=== PATIENT | female | born 1975 | race Caucasian/White ===

== ENCOUNTER 2020-02-03 15:07 | Outpatient (REF) | payer OTHER, SELFPAY | END 2020-02-03 15:08 | disposition home or self-care (01) | LOC: HO.HMGCLDS 15:07 | PROVIDERS: Visit Provider Nurse Practitioner Family | DX: R07.0 Pain in throat (principal) | CPT/HCPCS: 84443 ==

== ENCOUNTER 2020-08-21 15:43 | Emergency (ER) | payer OTHER, SELFPAY ==
--- NOTE | ~2020-08-21 | US_ITS ---
EXAMINATION: US ABDOMEN LIMITED CLINICAL INFORMATION: Right upper quadrant pain.. COMPARISON: None TECHNIQUE: Real-time imaging of the right upper quadrant abdominal viscera. FINDINGS: PANCREAS: The head and the body the pancreas is homogeneous in echotexture. The tail is obscured by overlying gas. LIVER: The liver is normal in size. The liver contour is normal. Parenchymal echogenicity is is diffusely increased. No focal hepatic lesion. There is no intrahepatic biliary duct dilatation seen. GALLBLADDER: There are multiple echogenic floating gallstones without wall thickening. There is mild tenderness in right upper quadrant ultrasound probe. COMMON BILE DUCT: Normal in caliber measuring 0.3 cm in diameter. RIGHT KIDNEY: There is anechoic cyst in lower pole measuring 1.9 x 1.5 x 1.7 cm. No hydronephrosis. No renal calculi or focal parenchymal lesions. The kidney measures 10.3 cm in maximum dimension. FREE FLUID: None. US/US abdomen limited IMPRESSION: Simple cyst lower pole right kidney. Mild hepatic steatosis without focal lesion. Cholelithiasis with tenderness in right upper quadrant by ultrasound probe.
--- NOTE | 2020-08-21 16:26 | ED_ITS ---
HPI - Abdominal Pain General Chief Complaint: Abdominal Pain <ANUJA Jorgensen - Last Filed: 08/21/20 16:31> Stated Complaint: back pain <ANUJA Jorgensen - Last Filed: 08/21/20 16:31> Time Seen by Provider: 08/21/20 16:25 <ANUJA Jorgensen - Last Filed: 08/21/20 16:31> Source: patient <Loretta Cooper DO - Last Filed: 08/21/20 19:45> Mode of arrival: ambulatory <Loretta Cooper DO - Last Filed: 08/21/20 19:45> Limitations: no limitations <Loretta Cooper DO - Last Filed: 08/21/20 19:45> History of Present Illness HPI narrative: 44 yo female with hx of biliary colic started with RUQ pain similar to attacks after consuming heavy dairy, has surgery appointment September 03, n/v <Loretta Cooper DO - Last Filed: 08/21/20 19:45> MD elicited complaint: abdominal pain <Loretta Cooper DO - Last Filed: 08/21/20 19:45> Pertinent past history: other (gallstones) <Loretta Cooper DO - Last Filed: 08/21/20 19:45> Onset (ago): day(s) (2) <Loretta Cooper DO - Last Filed: 08/21/20 19:45> Pain Consistency: constant <Loretta Cooper DO - Last Filed: 08/21/20 19:45> Location: RUQ <Loretta Cooper DO - Last Filed: 08/21/20 19:45> Severity: moderate <Loretta Cooper DO - Last Filed: 08/21/20 19:45> Quality: stabbing <Loretta Cooper DO - Last Filed: 08/21/20 19:45> Radiation: back <Loretta Cooper DO - Last Filed: 08/21/20 19:45> Exacerbating factors: eating <Loretta Cooper DO - Last Filed: 08/21/20 19:45> Relieving factors: nothing <Loretta Cooper DO - Last Filed: 08/21/20 19:45> Context: history of similar episodes <Loretta Cooper DO - Last Filed: 08/21/20 19:45> Associated symptoms: nausea and vomiting <Loretta Cooper DO - Last Filed: 08/21/20 19:45> Related Data Home Medications: Previous Rx's Medication Instructions Recorded hydrocodone-acetaminophen 1 tab PO Q6H PRN #12 tab 08/21/20 ondansetron 4 mg PO Q8H PRN #20 tab 08/21/20 <ANUJA Jorgensen - Last Filed: 08/21/20 16:31> Allergies/Adverse Reactions: Allergies Allergy/AdvReac Type Severity Reaction Status Date / Time ibuprofen [IBUPROFEN] Allergy Unknown UNKNOWN Verified 08/21/20 16:26 <ANUJA Jorgensen - Last Filed: 08/21/20 16:31> Review of Systems Review of Systems Constitutional : No Weight loss, No Fever, No Chills ENT/Mouth : No sore throat, No Rhinorrhea Eyes: No Swelling, No Redness Cardiovascular : No Chest Pain, No SOB, NoEdema Respiratory : No Cough, No Sputum, No Wheezing Gastrointestinal : Positive Nausea, Positive Vomiting, no Diarrhea, positive abdominal Pain, No Hematochezia, No Melena Genitourinary : No Dysuria, No Urinary Frequency, No Hematuria, No Urgency Musculoskeletal : No joint pain, No Myalgias, No Joint Swelling Skin : No Skin Lesions, No rash Neuro : No Weakness, No Numbness, No Dizziness, No Headache Psych : No Anxiety/Panic, No Depression Heme/Lymph: No Bruising, No Lymphadenopathy Endocrine : No Polyuria, No Polydipsia All other systems reviewed and are negative. <Loretta Cooper DO - Last Filed: 08/21/20 19:45> Physical Exam Vital Signs: Vital Signs: Last Vital Signs Temp 98.9 F 08/21/20 18:30 Pulse 62 08/21/20 18:30 Resp 18 08/21/20 18:30 BP 109/75 08/21/20 18:30 Pulse Ox 99 08/21/20 18:30 Body Mass Index 31.1 <ANUJA Jorgensen Last Filed: 08/21/20 16:31> Vital Signs: Last Vital Signs Temp 98.9 F 08/21/20 18:30 Pulse 62 08/21/20 18:30 Resp 18 08/21/20 18:30 BP 109/75 08/21/20 18:30 Pulse Ox 99 08/21/20 18:30 Body Mass Index 31.1 <Loretta Cooper DO - Last Filed: 08/21/20 19:45> Appearance: Alert. Oriented X3. No acute distress. Eyes: Pupils equal, round and reactive to light. ENT: Pharynx normal. Neck: Normal inspection. Neck supple. CVS: Normal heart rate and rhythm. Pulses normal. Respiratory: No respiratory distress. Breath sounds normal. Abdomen: Soft and moderate RUQ no rebound or guarding, + grissom's Skin: Skin warm and dry. Normal skin color. Normal skin turgor. Extremities: No lower extremity edema. No calf ttp Neuro: Oriented X 3. No motor deficit. No sensory deficit. <Loretta Cooper DO - Last Filed: 08/21/20 19:45> Course Course Course Narrative: Rapid medical examination: 44 y/o female with history of gallstones presents with 2 days of severe 8/10 RUQ pain that wraps around to her right flank. Last ate yesterday and had worsening pain. + chills + loose stools. No N/V or fevers. Appears uncomfortable in triage. Temp 99.7. Hemodynamically stable. Given PO tylenol. Will get labs, lactic acid, RUQ U/S for further assessment. <ANUJA Jorgensen - Last Filed: 08/21/20 16:31> stable VS, no signs of GB infection on US normal labs, normal LFTs <Loretta Cooper DO - Last Filed: 08/21/20 19:45> MDM - Abdominal Pain MDM Narrative Medical decision making narrative: 44 yo female with known biliary colic 2 days of RUQ pain, labs, US, IV morphine for pain, does have surgery appointment on September 03, has not been eating a low fat diet, dispo per results and improvement. <Loretta Cooper DO - Last Filed: 08/21/20 19:45> Lab Data Result diagrams: : 08/21/20 18:36 08/21/20 18:36 <ANUJA Jorgensen - Last Filed: 08/21/20 16:31> Labs: Lab Results 08/21/20 08/21/20 08/21/20 Range/Units 18:36 18:36 18:36 WBC 9.7 (4.8-10.8) X10*3/uL RBC 4.09 L (4.20-5.50) X10*6/uL Hgb 12.5 (12.0-16.0) g/dl Hct 36.2 L (37-47) % MCV 88.5 (80-98) fL MCH 30.6 (27.0-33.0) pg MCHC 34.5 (31.0-35.0) g/dl RDW 12.4 (11.0-16.0) % Plt Count 359 (160-400) X10*3/uL MPV 9.5 (9.4-12.3) fL Immature Gran % (Auto) 0.3 (0.0-0.4) % Neut % (Auto) 77.5 H (45-73) % Lymph % (Auto) 16.9 L (20-40) % [place] % (Auto) 4.7 (2-11) % Eos % (Auto) 0.2 (0-4) % Baso % (Auto) 0.4 (0-2) % Lymph # (Auto) 1.6 (1.2-4.9) X10*3/uL [place] # (Auto) 0.5 (0.1-1.2) X10*3/uL Eos # (Auto) 0.0 (0.0-0.4) X10*3/uL Baso # (Auto) 0.0 (0.0-0.2) X10*3/uL Abs Immat Gran (auto) 0.03 (0.00-0.03) X10*3/uL Absolute Neuts (auto) 7.5 (2.0-8.3) X10*3/uL Absolute Nucleated RBC 0.000 (0.0-0.012) X10*3/uL Nucleated RBC % (auto) 0.0 (0.0-0.2) /100WBC Hold Blue Top SEE NOTE Sodium 140 (135-145) mmol/L Potassium 3.9 (3.3-5.1) mmol/L Chloride 106 (96-108) mmol/L Carbon Dioxide 22 (22-29) mmol/L Anion Gap 16 (12-20) BUN 11 (9-16) mg/dL Creatinine 0.79 (0.5-1.4) mg/dL Estim Creat Clear Calc 109.5 Estimated GFR > 60 Random Glucose 90 (60-115) mg/dL Lactic Acid (0.5-2.0) mmol/L Calcium 9.1 (8.4-10.2) mg/dL Magnesium 2.1 (1.6-2.6) mg/dL Total Bilirubin 0.6 (0.0-1.0) mg/dL Direct Bilirubin 0.2 (0.0-0.5) mg/dL AST 19 (5-31) U/L ALT 24 (0-31) U/L Alkaline Phosphatase 47 (39-117) U/L Total Protein 7.3 (6.5-8.0) g/dL Albumin 4.4 (3.5-5.0) g/dL Lipase 36 (8-78) U/L 08/21/20 Range/Units 18:36 WBC (4.8-10.8) X10*3/uL RBC (4.20-5.50) X10*6/uL Hgb (12.0-16.0) g/dl Hct (37-47) % MCV (80-98) fL MCH (27.0-33.0) pg MCHC (31.0-35.0) g/dl RDW (11.0-16.0) % Plt Count (160-400) X10*3/uL MPV (9.4-12.3) fL Immature Gran % (Auto) (0.0-0.4) % Neut % (Auto) (45-73) % Lymph % (Auto) (20-40) % [place] % (Auto) (2-11) % Eos % (Auto) (0-4) % Baso % (Auto) (0-2) % Lymph # (Auto) (1.2-4.9) X10*3/uL [place] # (Auto) (0.1-1.2) X10*3/uL Eos # (Auto) (0.0-0.4) X10*3/uL Baso # (Auto) (0.0-0.2) X10*3/uL Abs Immat Gran (auto) (0.00-0.03) X10*3/uL Absolute Neuts (auto) (2.0-8.3) X10*3/uL Absolute Nucleated RBC (0.0-0.012) X10*3/uL Nucleated RBC % (auto) (0.0-0.2) /100WBC Hold Blue Top Sodium (135-145) mmol/L Potassium (3.3-5.1) mmol/L Chloride (96-108) mmol/L Carbon Dioxide (22-29) mmol/L Anion Gap (12-20) BUN (9-16) mg/dL Creatinine (0.5-1.4) mg/dL Estim Creat Clear Calc Estimated GFR Random Glucose (60-115) mg/dL Lactic Acid 1.4 (0.5-2.0) mmol/L Calcium (8.4-10.2) mg/dL Magnesium (1.6-2.6) mg/dL Total Bilirubin (0.0-1.0) mg/dL Direct Bilirubin (0.0-0.5) mg/dL AST (5-31) U/L ALT (0-31) U/L Alkaline Phosphatase (39-117) U/L Total Protein (6.5-8.0) g/dL Albumin (3.5-5.0) g/dL Lipase (8-78) U/L <ANUJA Jorgensen - Last Filed: 08/21/20 16:31> Lab Results 08/21/20 08/21/20 08/21/20 Range/Units 18:36 18:36 18:36 WBC 9.7 (4.8-10.8) X10*3/uL RBC 4.09 L (4.20-5.50) X10*6/uL Hgb 12.5 (12.0-16.0) g/dl Hct 36.2 L (37-47) % MCV 88.5 (80-98) fL MCH 30.6 (27.0-33.0) pg MCHC 34.5 (31.0-35.0) g/dl RDW 12.4 (11.0-16.0) % Plt Count 359 (160-400) X10*3/uL MPV 9.5 (9.4-12.3) fL Immature Gran % (Auto) 0.3 (0.0-0.4) % Neut % (Auto) 77.5 H (45-73) % Lymph % (Auto) 16.9 L (20-40) % [place] % (Auto) 4.7 (2-11) % Eos % (Auto) 0.2 (0-4) % Baso % (Auto) 0.4 (0-2) % Lymph # (Auto) 1.6 (1.2-4.9) X10*3/uL [place] # (Auto) 0.5 (0.1-1.2) X10*3/uL Eos # (Auto) 0.0 (0.0-0.4) X10*3/uL Baso # (Auto) 0.0 (0.0-0.2) X10*3/uL Abs Immat Gran (auto) 0.03 (0.00-0.03) X10*3/uL Absolute Neuts (auto) 7.5 (2.0-8.3) X10*3/uL Absolute Nucleated RBC 0.000 (0.0-0.012) X10*3/uL Nucleated RBC % (auto) 0.0 (0.0-0.2) /100WBC Hold Blue Top SEE NOTE Sodium 140 (135-145) mmol/L Potassium 3.9 (3.3-5.1) mmol/L Chloride 106 (96-108) mmol/L Carbon Dioxide 22 (22-29) mmol/L Anion Gap 16 (12-20) BUN 11 (9-16) mg/dL Creatinine 0.79 (0.5-1.4) mg/dL Estim Creat Clear Calc 109.5 Estimated GFR > 60 Random Glucose 90 (60-115) mg/dL Lactic Acid (0.5-2.0) mmol/L Calcium 9.1 (8.4-10.2) mg/dL Magnesium 2.1 (1.6-2.6) mg/dL Total Bilirubin 0.6 (0.0-1.0) mg/dL Direct Bilirubin 0.2 (0.0-0.5) mg/dL AST 19 (5-31) U/L ALT 24 (0-31) U/L Alkaline Phosphatase 47 (39-117) U/L Total Protein 7.3 (6.5-8.0) g/dL Albumin 4.4 (3.5-5.0) g/dL Lipase 36 (8-78) U/L 08/21/20 Range/Units 18:36 WBC (4.8-10.8) X10*3/uL RBC (4.20-5.50) X10*6/uL Hgb (12.0-16.0) g/dl Hct (37-47) % MCV (80-98) fL MCH (27.0-33.0) pg MCHC (31.0-35.0) g/dl RDW (11.0-16.0) % Plt Count (160-400) X10*3/uL MPV (9.4-12.3) fL Immature Gran % (Auto) (0.0-0.4) % Neut % (Auto) (45-73) % Lymph % (Auto) (20-40) % [place] % (Auto) (2-11) % Eos % (Auto) (0-4) % Baso % (Auto) (0-2) % Lymph # (Auto) (1.2-4.9) X10*3/uL [place] # (Auto) (0.1-1.2) X10*3/uL Eos # (Auto) (0.0-0.4) X10*3/uL Baso # (Auto) (0.0-0.2) X10*3/uL Abs Immat Gran (auto) (0.00-0.03) X10*3/uL Absolute Neuts (auto) (2.0-8.3) X10*3/uL Absolute Nucleated RBC (0.0-0.012) X10*3/uL Nucleated RBC % (auto) (0.0-0.2) /100WBC Hold Blue Top Sodium (135-145) mmol/L Potassium (3.3-5.1) mmol/L Chloride (96-108) mmol/L Carbon Dioxide (22-29) mmol/L Anion Gap (12-20) BUN (9-16) mg/dL Creatinine (0.5-1.4) mg/dL Estim Creat Clear Calc Estimated GFR Random Glucose (60-115) mg/dL Lactic Acid 1.4 (0.5-2.0) mmol/L Calcium (8.4-10.2) mg/dL Magnesium (1.6-2.6) mg/dL Total Bilirubin (0.0-1.0) mg/dL Direct Bilirubin (0.0-0.5) mg/dL AST (5-31) U/L ALT (0-31) U/L Alkaline Phosphatase (39-117) U/L Total Protein (6.5-8.0) g/dL Albumin (3.5-5.0) g/dL Lipase (8-78) U/L <Loretta Cooper DO - Last Filed: 08/21/20 19:45> Discharge Plan Discharge Clinical Impression: Biliary colic <ANUJA Jorgensen - Last Filed: 08/21/20 16:31> Patient Disposition: Home, Self-Care <ANUJA Jorgensen - Last Filed: 08/21/20 16:31> Instructions: Biliary Colic (ED), Low Fat Diet (ED) <ANUJA Jorgensen - Last Filed: 08/21/20 16:31> Additional Instructions: return to ED for any worsening symptoms or concerns LOW fat to NO fat, keep your surgery appointment for September 03 <ANUJA Jorgensen - Last Filed: 08/21/20 16:31> Prescriptions: New hydrocodone-acetaminophen 5-325 mg tablet 1 tab PO Q6H PRN (Reason: pain) Qty: 12 RF: 0 ondansetron 4 mg tablet,disintegrating 4 mg PO Q8H PRN (Reason: nausea and vomiting) Qty: 20 RF: 0 <ANUJA Jorgensen - Last Filed: 08/21/20 16:31> [facility] Past Medical History Attestation statement: The following information was validated with the patient. <Lorteta Cooper DO - Last Filed: 08/21/20 19:45> Medical History: Medical History (Updated 08/21/20 @ 19:43 by Loretta Cooper DO) Biliary colic No known health problems <ANUJA Jorgensen - Last Filed: 08/21/20 16:31> Social History Social History: Social History (Updated 08/21/20 @ 18:14 by Loretta Cooper DO) Smoking Status: Never smoker Use of substances other than those prescribed or required for medical reasons: No Advance Directives: No Advance Directives Information Provided: Yes Patient : No <ANUJA Jorgensen - Last Filed: 08/21/20 16:31>
[2020-08-21 16:27] VITALS: BP 126/75; PULSE 83; RESP 20; TEMP 37.6; O2SAT 99; BMI 31.1
[2020-08-21 18:30] VITALS: BP 109/75; PULSE 62; RESP 18; TEMP 37.2; O2SAT 99
--- NOTE | 2020-08-21 18:44 | PC.NURSE ---
Pt states that pain is 1/10 and would not like the morphine at this time. She also denies nausea at this time and declined the zofran. She wishes to have jello. agreed and pt is eating jello at this time. VSS. Pt is afebrile.
[2020-08-21 19:04] LABS: MANUAL DIFF FLAG NO
[2020-08-21 19:06] LABS: Basophils Percent Auto 0.4 % (0-2); Eosinophils Percent Auto 0.2 % (0-4); Hematocrit 36.2 % (37-47); Hemoglobin 12.5 g/dl (12.0-16.0); Imm Gran Abs Auto 0.03 X10*3/uL (0.00-0.03); Imm Gran Pct Auto 0.3 % (0.0-0.4); Lymphocytes Absolute Auto 1.6 X10*3/uL (1.2-4.9); Lymphocytes Percent Auto 16.9 % (20-40); Mean Corpuscular HGB Conc 34.5 g/dl (31.0-35.0); Mean Corpuscular Hemoglobin 30.6 pg (27.0-33.0); Mean Corpuscular Volume 88.5 fL (80-98); Mean Platelet Volume 9.5 fL (9.4-12.3); Monocytes Absolute Auto 0.5 X10*3/uL (0.1-1.2); Monocytes Percent Auto 4.7 % (2-11); Neutrophils Absolute Auto 7.5 X10*3/uL (2.0-8.3); Neutrophils Percent Auto 77.5 % (45-73); Platelet Count 359 X10*3/uL (160-400); Red Blood Count 4.09 X10*6/uL (4.20-5.50); Red Cell Distribution Width 12.4 % (11.0-16.0); White Blood Count 9.7 X10*3/uL (4.8-10.8)
[2020-08-21 19:34] LABS: Lactic Acid 1.4 mmol/L (0.5-2.0)
[2020-08-21 19:38] LABS: Alanine Aminotransferase 24 U/L (0-31); Albumin Level 4.4 g/dL (3.5-5.0); Alkaline Phosphatase 47 U/L (39-117); Anion Gap 16 (12-20); Aspartate Amino Transferase 19 U/L (5-31); Bilirubin Direct 0.2 mg/dL (0.0-0.5); Bilirubin Total 0.6 mg/dL (0.0-1.0); Blood Urea Nitrogen 11 mg/dL (9-16); Calcium 9.1 mg/dL (8.4-10.2); Carbon Dioxide 22 mmol/L (22-29); Chloride 106 mmol/L (96-108); Creatinine Clr Calc Pharmacy 109.5; Estimated Glomerular Filt Rate > 60; Glucose Random 90 mg/dL (60-115); Lipase 36 U/L (8-78); Magnesium 2.1 mg/dL (1.6-2.6); Potassium 3.9 mmol/L (3.3-5.1); Sodium 140 mmol/L (135-145); Total Protein 7.3 g/dL (6.5-8.0)
--- NOTE | 2020-08-21 19:45 | PC.NURSE ---
Accidentally ordered COVID swab on this patient. Order entered in error. Disregard order. Plan for discharge home.
== END 2020-08-21 20:04 | disposition home or self-care (01) ==
PROVIDERS: Physician Assistant; Emergency Provider Emergency Medicine
DX: K80.50 Calculus of bile duct without cholangitis or cholecystitis without obstruction (principal); R10.11 Right upper quadrant pain; M54.5 Low back pain; Z79.899 Other long term (current) drug therapy
CPT/HCPCS: 36415; 76705; 80048; 80076; 83605; 83690; 83735; 85025; 96374; 96375; 99283; 99284

== ENCOUNTER → 2020-09-02 09:38 | Outpatient (BNVA) | payer OTHER, SELFPAY | PROVIDERS: PCP Family Medicine; Referring Provider Family Medicine; Visit Provider Surgery ==

== ENCOUNTER 2020-09-23 04:16 | Emergency (ER) | payer OTHER, SELFPAY ==
[2020-09-23 04:41] VITALS: BP 133/81; PULSE 74; RESP 18; TEMP 36.9; O2SAT 97; BMI 42.5
--- NOTE | 2020-09-23 05:17 | ED_ITS ---
HPI - Dental/Oral General Chief complaint: Dental/Oral Stated complaint: extreme sinus and jaw pain since 10am Time Seen by Provider: 09/23/20 05:07 Source: patient Mode of arrival: ambulatory Limitations: no limitations History of Present Illness HPI Narrative: 44-year-old female who presents emergency department for evaluation of right lower jaw pain with right facial swelling. The patient states that yesterday afternoon she developed pain in the teeth of her right lower jaw. She states the pain got progressively worse. Last night at around 10:30 p.m., she developed swelling of the right side of her face. She states that she has been up all night secondary to the pain. The pain is a constant, dull ache which is severe. Patient also states that she is having pain in her right shoulder. She denied fever, chills, nausea, vomiting. The patient states that she had 1 oxycodone that she took without any relief of her pain. The patient states that she does have a tooth in her right lower jaw that needs a root canal use also told that she needs a deep cleaning of her teeth as well. Patient states that she had a dental infection approximately 1 month prior and was treated with amoxicillin. The patient lists ibuprofen as an allergy however she states that she was taking high doses and had rectal bleeding and was told that she can take ibuprofen and smaller doses. Related Data Home Medications Medication Instructions Recorded Confirmed amoxicillin 500 mg capsule 500 mg PO TID 09/02/20 09/02/20 Previous Rx's Medication Instructions Recorded amoxicillin 500 mg PO TID 7 Days #21 tab 09/23/20 morphine 15 mg PO Q4-6H PRN #10 tab 09/23/20 Allergies Allergy/AdvReac Type Severity Reaction Status Date / Time ibuprofen [IBUPROFEN] Allergy Unknown UNKNOWN Verified 08/21/20 16:26 Review of Systems Review of Systems: Yes all other systems are reviewed and are negative [facility] Past Medical History [facility] Narrative: Past medical history: Gallstones, migraines. Social history: She denies tobacco use, she occasionally drinks alcohol, she denies drug use. Medical History (Updated 09/23/20 @ 05:26 by Paulie Mason MD) Biliary colic Migraine No known health problems Surgical History (Updated 09/02/20 @ 09:59 by VANNESSA Nichols) delivery delivered Ectopic Family History Family History (Updated 09/02/20 @ 10:00 by VANNESSA Nichols) Mother Breast cancer Paternal Aunt Breast cancer Paternal Uncle Cancer of unknown origin Social History Social History (Updated 09/02/20 @ 10:00 by VANNESSA Nichols) Alcohol intake: current Alcohol intake frequency: holidays/special occasions only Patient Tobacco Use Status: Never used Tobacco Advance Directives: No Advance Directives Information Provided: No Patient : No Physical Exam Vital Signs: Vital Signs: Last Vital Signs Temp 98.6 F 09/23/20 05:30 Pulse 74 09/23/20 05:30 Resp 16 09/23/20 05:30 BP 123/77 09/23/20 05:30 Pulse Ox 97 09/23/20 05:30 Body Mass Index 42.5 Const: General: cooperative and in distress moderate (Secondary to right facial pain) Orientation/consciousness: oriented to person and oriented to place HENMT: Other: The patient has swelling on the right side of her face mainly over the right jaw, the area of swelling is tender to palpation, there is no increased warmth or erythema to her face. Ears: external ears normal General nose exam: Normal external nose present Mouth: Normal oral and palatal mucosa present Teeth and gingiva: other (Fractured tooth number 30, tender to palpation) Throat: Yes posterior oropharynx normal Eyes: General: appearance normal, both eyes and all related structures Neck: Neck: Yes normal visual inspection, Yes no lymphadenopathy, Yes no meningeal signs, Yes trachea midline and Yes supple Resp: Effort & Inspection: normal respiratory effort Neuro: General: oriented to person, oriented to place and no meningeal signs Psych: Appearance: grossly normal Mental Status: mental status grossly normal Speech and movement: Normal speech and movement present Course Course Course Narrative: 44-year-old female who presents emergency department for evaluation of right dental pain and right facial swelling x1 day. Physical examination is consistent with a right dental abscess most likely involving tooth number 30. Patient does appear to be in distress secondary to her pain. She was treated with Toradol 60 mg IM and started on amoxicillin 500 mg 3 times a day for 7 days. She was given her 1st dose of amoxicillin orally. The patient was advised to take ibuprofen Tylenol for pain. For pain not relieved by ibuprofen and Tylenol she was given a prescription for morphine. The patient will need to follow-up with her dentist the for further treatment. Discharge Plan Discharge Clinical Impression: Dental abscess, Facial swelling Patient Disposition: Home, Self-Care Instructions: Dental Abscess (ED) Additional Instructions: Your symptoms are consistent with an infected tooth causing an abscess and swelling of your face. Take amoxicillin 500 mg pills, 1 pill 3 times a day for 7 days. Take ibuprofen 200 mg pills, 3 pills every 6 hours as needed for pain. Take Tylenol (acetaminophen) 500 mg pills, 2 pills every 4 to 6 hours as needed for pain. For pain not relieved by ibuprofen or Tylenol take morphine 15 mg pills, 1 pill every 4-6 hours as needed for pain. This medication is a narcotic medication and will make you sleepy, you cannot work or drive while taking this medication. This medication can be addicting, if your concerned about addiction do not get this medication filled or you can ask the pharmacist for less pills than prescribed. Use a heating pad on low for 10-15 minutes to the right side of your face, this will increase the blood flow to your face and help the healing process. Call your dentist today to make a follow-up appointment within the next 1-3 days. Prescriptions: New amoxicillin 500 mg tablet 500 mg PO TID 7 Days Qty: 21 RF: 0 morphine 15 mg tablet 15 mg PO Q4-6H PRN (Reason: pain) Qty: 10 RF: 0 No Action amoxicillin 500 mg capsule 500 mg PO TID RF: 0
[2020-09-23] MEDS: Amoxicillin 500 MG CAPSULE PO (05:27)
[2020-09-23] MEDS: Ketorolac Tromethamine 60 MG/2 ML VIAL IM (05:28)
[2020-09-23 05:30] VITALS: BP 123/77; PULSE 74; RESP 16; TEMP 37; O2SAT 97
== END 2020-09-23 07:31 | disposition home or self-care (01) ==
PROVIDERS: Emergency Provider Emergency Medicine Emergency Medical Services
DX: K04.7 Periapical abscess without sinus (principal)
CPT/HCPCS: 96372; 99284; J1885

== ENCOUNTER 2021-09-07 09:29 | Outpatient (REF) | payer OTHER, SELFPAY ==
[2021-09-07 11:14] LABS: HBsAGNum1 0.25 S/CO (0.00-0.99); HIV AB/AG Nonreactive (Nonreactive); HIV Num 1 0.06 S/CO (0.00-0.99); Hepatitis B Surface Antigen Negative (Negative); ~HepC Num1 0.06 S/CO (0.00-0.79); ~Hepatitis C Antibody Nonreactive (Nonreactive)
[2021-09-07 11:19] LABS: HCG Quantitative < 2 mIU/mL; TSH reflex Free T4 1.16 uIU/mL (0.32-4.0)
[2021-09-07 13:47] LABS: CT PCR NOT DETECTED (Not Detect.); NG PCR NOT DETECTED (Not Detect.)
[2021-09-08 08:15] LABS: Syphilis Screen Nonreactive (Nonreactive)
[2021-09-08 09:50] LABS: BV Int Neg Control Negative (Negative); BV Int Pos Control Positive (Positive)
[2021-09-14 03:36] LABS: HPV mRNA E6/E7 rflx Not Detected (Not Detected)
== END 2021-09-07 09:30 | disposition home or self-care (01) ==
LOC: HO.LAB 09:29
PROVIDERS: Visit Provider Obstetrics & Gynecology
DX: Z01.419 Encounter for gynecological examination (general) (routine) without abnormal findings (principal); Z11.51 Encounter for screening for human papillomavirus (HPV); Z11.3 Encounter for screening for infections with a predominantly sexual mode of transmission; N93.9 Abnormal uterine and vaginal bleeding, unspecified
CPT/HCPCS: 36415; 84443; 84702; 86780; 86803; 87340; 87389; 87480; 87491; 87510; 87591; 87624; 87660; 88142

== ENCOUNTER 2021-10-04 12:50 | Outpatient (REF) | payer OTHER, SELFPAY | END 2021-10-04 12:51 | disposition home or self-care (01) | LOC: HO.LAB 12:50 | PROVIDERS: Visit Provider Obstetrics & Gynecology | DX: N93.9 Abnormal uterine and vaginal bleeding, unspecified (principal); Z32.02 Encounter for pregnancy test, result negative | CPT/HCPCS: 58100; 81025; 88305 ==

== ENCOUNTER 2021-10-17 12:55 | Outpatient (REF) | payer OTHER, SELFPAY ==
--- NOTE | ~2021-10-17 | US_ITS ---
EXAMINATION: US PELVIS CLINICAL INFORMATION: Abnormal uterine bleeding COMPARISON: None TECHNIQUE: Ultrasound of the pelvis is performed using both transabdominal and transvaginal transducers along with Doppler. Transvaginal imaging is performed due to inadequate visualization transabdominally. FINDINGS: Uterus: The uterus is anteverted and measures 9.2 x 3.6 x 5.6 cm. Nabothian cysts in the cervix. The double wall endometrial thickness is 0.5 mm. The uterus is smooth in contour and has normal myometrial echogenicity. No visible fibroid. Adnexa: Both ovaries are visualized. There is no ovarian torsion. There is no pelvic ascites or fluid collection. Right ovary measures 2.0 x 1.0 x 2.0 cm. Left ovary measures 2.3 x 1.3 x 2.2 cm. Exophytic 1.4 cm left ovarian follicle, no follow-up imaging recommended. US/US pelvic and transvaginal IMPRESSION: No findings to explain symptoms of abnormal uterine bleeding. Endometrium measures 5 mm in thickness.
== END 2021-10-17 12:56 | disposition home or self-care (01) ==
LOC: HO.US 12:55
PROVIDERS: Visit Provider Obstetrics & Gynecology
DX: N93.9 Abnormal uterine and vaginal bleeding, unspecified (principal)
CPT/HCPCS: 76830; 76856

== ENCOUNTER 2022-04-19 17:57 | Emergency (ER) | payer OTHER, SELFPAY ==
--- NOTE | ~2022-04-19 | XR_ITS ---
EXAMINATION: XR CHEST CLINICAL INFORMATION: Chest pain COMPARISON: None TECHNIQUE: 2 views of the chest were obtained. FINDINGS: No significant abnormality is noted involving the heart, lungs, mediastinum, bony thorax or soft tissues. XR/XR chest 2V IMPRESSION: Unremarkable chest examination.
--- NOTE | 2022-04-19 18:01 | ECG_ITS ---
Test Reason : CHEST PAIN Blood Pressure : / mmHG Vent. Rate : 095 BPM Atrial Rate : 095 BPM P-R Int : 178 ms QRS Dur : 082 ms QT Int : 362 ms P-R-T Axes : 036 026 024 degrees QTc Int : 454 ms Normal sinus rhythm Normal ECG When compared with ECG of 20-AUG-2017 19:10, No significant change was found Referred By: Sun Alfonso Electronically Signed By:MARIBEL HOLDEN MD
--- NOTE | 2022-04-19 18:18 | ED.CHESTPAIN ---
HPI - Chest Pain General Chief Complaint: Chest Pain <ANUJA Gonzalez - Last Filed: 04/19/22 18:37> Stated Complaint: Chest Pain <ANUJA Gonzalez - Last Filed: 04/19/22 18:37> Time Seen by Provider: 04/19/22 20:40 <ANUJA Gonzalez - Last Filed: 04/19/22 18:37> Source: patient <Gil Weber MD - Last Filed: 04/19/22 21:50> Limitations: no limitations <Gil Weber MD - Last Filed: 04/19/22 21:50> History of Present Illness HPI narrative: This is a 46-year-old male with a history of anxiety, with the last attack of anxiety about a year and half ago, who today developed a feeling of impending doom. He drinks lots of water but later had a feeling of discomfort below both of her breasts. She felt like she could not quite Get a deep enough breath, but did not feel short of breath per se. She denies abdominal pain. She denies sweats. She did have brief nausea and went to the bathroom and had few episodes of loose stool. She also has noted pain in her right ear as well as in her throat. The right ear pain has been more constant today. She denies any acute back pain. She denies any pain or swelling her legs. She denies any chest pain is worse with taking a deep breath. She has not been on medicine for anxiety in the past, generally tries to get herself to relax, takes a shower. The patient does have known gallstones but denies any acute pain in the right upper quadrant <Gil Weber MD - Last Filed: 04/19/22 21:50> Related Data Home Medications: Previous Rx's Medication Instructions Recorded medroxyprogesterone 10 mg tablet 10 mg PO DAILY 3 days #3 tabs 10/23/21 (Provera) lorazepam 1 mg tablet 1 mg PO DAILY PRN anxiety #10 tabs 04/19/22 <ANUJA Gonzalez - Last Filed: 04/19/22 18:37> Allergies/Adverse Reactions: Allergies Allergy/AdvReac Type Severity Reaction Status Date / Time ibuprofen [IBUPROFEN] Allergy Unknown UNKNOWN Verified 04/19/22 18:33 <ANUJA Gonzalez - Last Filed: 04/19/22 18:37> Review of Systems Review of Systems: As per HPI <Gil Weber MD - Last Filed: 04/19/22 21:50> [facility] Past Medical History Medical History: Medical History Biliary colic History of female sterilization Migraine No known health problems <ANUJA Gonzalez - Last Filed: 04/19/22 18:37> Surgical History: Surgical History delivery delivered Ectopic <ANUJA Gonzalez - Last Filed: 04/19/22 18:37> Family History Family History: Family History Mother Breast cancer Paternal Aunt Breast cancer Paternal Uncle Cancer of unknown origin <ANUJA Gonzalez - Last Filed: 04/19/22 18:37> Social History Social History: Social History Alcohol intake: current Alcohol intake frequency: a few times a month Patient Tobacco Use Status: Never used Tobacco Smoked in Last 30 Days: No Substance Use Type: Other Substance Use Type Other:: CBD gummies Substance Use Frequency: Occasionally Last Used Substance: Weeks (ago) Advance Directives: No Advance Directives Information Provided: No Patient : No <ANUJA Gonzalez - Last Filed: 04/19/22 18:37> Physical Exam Vital Signs: Vital Signs: Last Vital Signs Temp 98.1 F 04/19/22 19:25 Pulse 72 04/19/22 21:17 Resp 14 04/19/22 21:17 BP 113/72 04/19/22 21:17 Pulse Ox 100 04/19/22 21:17 O2 Del Method 04/19/22 21:17 BMI result Body Mass Index 38.1 <ANUJA Gonzalez - Last Filed: 04/19/22 18:37> Vital Signs: Last Vital Signs Temp 98.1 F 04/19/22 19:25 Pulse 72 04/19/22 21:17 Resp 14 04/19/22 21:17 BP 113/72 04/19/22 21:17 Pulse Ox 100 04/19/22 21:17 O2 Del Method 04/19/22 21:17 BMI result Body Mass Index 38.1 <Gil Weber MD - Last Filed: 04/19/22 21:50> Const: Other: PERRLA Conj [place] Mucous membranes moist Throat clear tympanic membranes normal, no cerumen impaction Neck supple Lungs CTA Heart RRR no murmurs rubs or gallops Abd soft, non tender, non distended Extremities no pitting edema Neuro alert and oriented x 3, non focal psychiatric: Mildly anxious, does not appear depressed <Gil Weber MD - Last Filed: 04/19/22 21:50> Course Course Course Narrative: RME- 18:33pm 46yoF presenting to the ED c c/o chills, chest pain, chest tightness near bottom of left breast bone and palpitations started around 2 pm today 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 She reports associated nausea and diarrhea started today as well. Report an intermittent cough along c sore throat. She denies any sputum production, fevers, SOB, LEZAMA, Orthopnea, paresthesias, vomiting, abdominal pain, lower extremity edema or calf tenderness, recent travel or sick contacts that she is aware of. Plan: Labs, EKG, chest x-ray, COVID/RSV/flu swab, UA ordered at this time. Patient will be sent to the waiting room to evaluate in the ED. <ANUJA Gonzalez - Last Filed: 04/19/22 18:37> Medications Administered Discontinued Medications Generic Name Dose Route Start Last Admin Trade Name Freq PRN Reason Stop Dose Admin Lorazepam 1 mg 04/19/22 20:54 04/19/22 21:01 Lorazepam 1 Mg Tablet PO 04/19/22 20:55 1 mg ONCE ONE Administration <ANUJA Gonzalez - Last Filed: 04/19/22 18:37> Medications Administered Discontinued Medications Generic Name Dose Route Start Last Admin Trade Name Freq PRN Reason Stop Dose Admin Lorazepam 1 mg 04/19/22 20:54 04/19/22 21:01 Lorazepam 1 Mg Tablet PO 04/19/22 20:55 1 mg ONCE ONE Administration <Gil Weber MD - Last Filed: 04/19/22 21:50> Medical Decision Making Medical Decision Making MDM Narrative: the patient was given lorazepam 1 mg p.o. in the ED and felt better, states that this overall took away her sense of being unwell. Patient states that in retrospect she believes the anxiety and other symptoms were set off by stress at work, in particular a meeting she had today. Patient also expresses concern that she might have obstructive sleep apnea states she can follow up with her primary care physician about this. She believes that some of her pain under her breasts is due to anxiety related GERD <Gil Weber MD - Last Filed: 04/19/22 21:50> Differential Diagnosis Differential Diagnoses: The differential diagnosis associated with the presentation includes <Gil Weber MD - Last Filed: 04/19/22 21:50> acute coronary syndrome, GERD, anxiety, pulmonary embolism, pneumonia, biliary colic <Gil Weber MD - Last Filed: 04/19/22 21:50> Lab Data MDM Lab Attestation statement: I reviewed the patient's lab results. <Gil Weber MD - Last Filed: 04/19/22 21:50> Result Diagrams: 04/19/22 18:18 04/19/22 18:18 <ANUJA Gonzalez - Last Filed: 04/19/22 18:37> Labs: Lab Results 04/19/22 04/19/22 04/19/22 Range/Units 18:18 18:18 18:18 WBC 6.1 (4.8-10.8) X10*3/uL RBC 4.38 (4.20-5.50) X10*6/uL Hgb 13.3 (12.0-16.0) g/dl Hct 38.4 (37.0-47.0) % MCV 87.7 (80.0-98.0) fL MCH 30.4 (27.0-33.0) pg MCHC 34.6 (31.0-35.0) g/dl RDW 12.2 (11.0-16.0) % Plt Count 356 (160-400) X10*3/uL MPV 9.4 (9.4-12.3) fL Immature Gran % (Auto) 0.2 (0.0-0.4) % Neut % (Auto) 66.5 (45-73) % Lymph % (Auto) 28.2 (20-40) % Donley % (Auto) 3.9 (2-11) % Eos % (Auto) 0.5 (0-4) % Baso % (Auto) 0.7 (0-2) % Lymph # (Auto) 1.7 (1.2-4.9) X10*3/uL Donley # (Auto) 0.2 (0.1-1.2) X10*3/uL Eos # (Auto) 0.0 (0.0-0.4) X10*3/uL Baso # (Auto) 0.0 (0.0-0.2) X10*3/uL Abs Immat Gran (auto) 0.01 (0.00-0.03) X10*3/uL Absolute Neuts (auto) 4.1 (2.0-8.3) x10*3/uL Absolute Nucleated RBC 0.000 (0.0-0.012) X10*3/uL Nucleated RBC % (auto) 0.0 (0.0-0.2) /100WBC PT 10.2 (10.0-13.1) SEC INR 0.9 (0.9-1.1) Sodium 139 (135-145) mmol/L Potassium 3.9 (3.3-5.1) mmol/L Chloride 104 (96-108) mmol/L Carbon Dioxide 25 (22-29) mmol/L Anion Gap 14 (12-20) BUN 15 (9-16) mg/dL Creatinine 0.79 (0.5-1.4) mg/dL Estim Creat Clear Calc 92.7 Estimated GFR > 60 Random Glucose 140 H (60-115) mg/dL Calcium 9.9 D (8.4-10.2) mg/dL Magnesium 1.9 (1.6-2.6) mg/dL Total Bilirubin 0.2 (0.0-1.0) mg/dL AST 18 (5-31) U/L ALT 18 (0-31) U/L Alkaline Phosphatase 56 (39-117) U/L Troponin I High Sens (<3.5-17.0) ng/L Total Protein 7.5 (6.5-8.0) g/dL Albumin 4.4 (3.5-5.0) g/dL Lipase 46 (8-78) U/L Beta HCG, Quant < 2 mIU/mL Urine Color Urine Appearance Urine pH (5.0-9.0) Ur Specific [place] (1.005-1.025) Urine Protein (Neg-Trace) mg/dL Urine Glucose (UA) (Negative) mg/dL Urine Ketones (Negative) mg/dL Urine Blood (Negative) Urine Nitrite (Negative) Ur Leukocyte Esterase (Negative) 04/19/22 04/19/22 04/19/22 Range/Units 18:18 18:18 18:18 WBC (4.8-10.8) X10*3/uL RBC (4.20-5.50) X10*6/uL Hgb (12.0-16.0) g/dl Hct (37.0-47.0) % MCV (80.0-98.0) fL MCH (27.0-33.0) pg MCHC (31.0-35.0) g/dl RDW (11.0-16.0) % Plt Count (160-400) X10*3/uL MPV (9.4-12.3) fL Immature Gran % (Auto) (0.0-0.4) % Neut % (Auto) (45-73) % Lymph % (Auto) (20-40) % Donley % (Auto) (2-11) % Eos % (Auto) (0-4) % Baso % (Auto) (0-2) % Lymph # (Auto) (1.2-4.9) X10*3/uL Donley # (Auto) (0.1-1.2) X10*3/uL Eos # (Auto) (0.0-0.4) X10*3/uL Baso # (Auto) (0.0-0.2) X10*3/uL Abs Immat Gran (auto) (0.00-0.03) X10*3/uL Absolute Neuts (auto) (2.0-8.3) x10*3/uL Absolute Nucleated RBC (0.0-0.012) X10*3/uL Nucleated RBC % (auto) (0.0-0.2) /100WBC PT (10.0-13.1) SEC INR (0.9-1.1) Sodium (135-145) mmol/L Potassium (3.3-5.1) mmol/L Chloride (96-108) mmol/L Carbon Dioxide (22-29) mmol/L Anion Gap (12-20) BUN (9-16) mg/dL Creatinine (0.5-1.4) mg/dL Estim Creat Clear Calc Estimated GFR Random Glucose (60-115) mg/dL Calcium (8.4-10.2) mg/dL Magnesium (1.6-2.6) mg/dL Total Bilirubin (0.0-1.0) mg/dL AST (5-31) U/L ALT (0-31) U/L Alkaline Phosphatase (39-117) U/L Troponin I High Sens < 3.5 (<3.5-17.0) ng/L Total Protein (6.5-8.0) g/dL Albumin (3.5-5.0) g/dL Lipase (8-78) U/L Beta HCG, Quant Cancelled mIU/mL Urine Color Yellow Urine Appearance Clear Urine pH 7.0 (5.0-9.0) Ur Specific [place] <= 1.005 (1.005-1.025) Urine Protein Negative (Neg-Trace) mg/dL Urine Glucose (UA) Negative (Negative) mg/dL Urine Ketones Negative (Negative) mg/dL Urine Blood Negative (Negative) Urine Nitrite Negative (Negative) Ur Leukocyte Esterase Negative (Negative) <ANUJA Gonzalez - Last Filed: 04/19/22 18:37> Lab Results 04/19/22 04/19/22 04/19/22 Range/Units 18:18 18:18 18:18 WBC 6.1 (4.8-10.8) X10*3/uL RBC 4.38 (4.20-5.50) X10*6/uL Hgb 13.3 (12.0-16.0) g/dl Hct 38.4 (37.0-47.0) % MCV 87.7 (80.0-98.0) fL MCH 30.4 (27.0-33.0) pg MCHC 34.6 (31.0-35.0) g/dl RDW 12.2 (11.0-16.0) % Plt Count 356 (160-400) X10*3/uL MPV 9.4 (9.4-12.3) fL Immature Gran % (Auto) 0.2 (0.0-0.4) % Neut % (Auto) 66.5 (45-73) % Lymph % (Auto) 28.2 (20-40) % Donley % (Auto) 3.9 (2-11) % Eos % (Auto) 0.5 (0-4) % Baso % (Auto) 0.7 (0-2) % Lymph # (Auto) 1.7 (1.2-4.9) X10*3/uL Donley # (Auto) 0.2 (0.1-1.2) X10*3/uL Eos # (Auto) 0.0 (0.0-0.4) X10*3/uL Baso # (Auto) 0.0 (0.0-0.2) X10*3/uL Abs Immat Gran (auto) 0.01 (0.00-0.03) X10*3/uL Absolute Neuts (auto) 4.1 (2.0-8.3) x10*3/uL Absolute Nucleated RBC 0.000 (0.0-0.012) X10*3/uL Nucleated RBC % (auto) 0.0 (0.0-0.2) /100WBC PT 10.2 (10.0-13.1) SEC INR 0.9 (0.9-1.1) Sodium 139 (135-145) mmol/L Potassium 3.9 (3.3-5.1) mmol/L Chloride 104 (96-108) mmol/L Carbon Dioxide 25 (22-29) mmol/L Anion Gap 14 (12-20) BUN 15 (9-16) mg/dL Creatinine 0.79 (0.5-1.4) mg/dL Estim Creat Clear Calc 92.7 Estimated GFR > 60 Random Glucose 140 H (60-115) mg/dL Calcium 9.9 D (8.4-10.2) mg/dL Magnesium 1.9 (1.6-2.6) mg/dL Total Bilirubin 0.2 (0.0-1.0) mg/dL AST 18 (5-31) U/L ALT 18 (0-31) U/L Alkaline Phosphatase 56 (39-117) U/L Troponin I High Sens (<3.5-17.0) ng/L Total Protein 7.5 (6.5-8.0) g/dL Albumin 4.4 (3.5-5.0) g/dL Lipase 46 (8-78) U/L Beta HCG, Quant < 2 mIU/mL Urine Color Urine Appearance Urine pH (5.0-9.0) Ur Specific [place] (1.005-1.025) Urine Protein (Neg-Trace) mg/dL Urine Glucose (UA) (Negative) mg/dL Urine Ketones (Negative) mg/dL Urine Blood (Negative) Urine Nitrite (Negative) Ur Leukocyte Esterase (Negative) 04/19/22 04/19/22 04/19/22 Range/Units 18:18 18:18 18:18 WBC (4.8-10.8) X10*3/uL RBC (4.20-5.50) X10*6/uL Hgb (12.0-16.0) g/dl Hct (37.0-47.0) % MCV (80.0-98.0) fL MCH (27.0-33.0) pg MCHC (31.0-35.0) g/dl RDW (11.0-16.0) % Plt Count (160-400) X10*3/uL MPV (9.4-12.3) fL Immature Gran % (Auto) (0.0-0.4) % Neut % (Auto) (45-73) % Lymph % (Auto) (20-40) % Donley % (Auto) (2-11) % Eos % (Auto) (0-4) % Baso % (Auto) (0-2) % Lymph # (Auto) (1.2-4.9) X10*3/uL [place]ley # (Auto) (0.1-1.2) X10*3/uL Eos # (Auto) (0.0-0.4) X10*3/uL Baso # (Auto) (0.0-0.2) X10*3/uL Abs Immat Gran (auto) (0.00-0.03) X10*3/uL Absolute Neuts (auto) (2.0-8.3) x10*3/uL Absolute Nucleated RBC (0.0-0.012) X10*3/uL Nucleated RBC % (auto) (0.0-0.2) /100WBC PT (10.0-13.1) SEC INR (0.9-1.1) Sodium (135-145) mmol/L Potassium (3.3-5.1) mmol/L Chloride (96-108) mmol/L Carbon Dioxide (22-29) mmol/L Anion Gap (12-20) BUN (9-16) mg/dL Creatinine (0.5-1.4) mg/dL Estim Creat Clear Calc Estimated GFR Random Glucose (60-115) mg/dL Calcium (8.4-10.2) mg/dL Magnesium (1.6-2.6) mg/dL Total Bilirubin (0.0-1.0) mg/dL AST (5-31) U/L ALT (0-31) U/L Alkaline Phosphatase (39-117) U/L Troponin I High Sens < 3.5 (<3.5-17.0) ng/L Total Protein (6.5-8.0) g/dL Albumin (3.5-5.0) g/dL Lipase (8-78) U/L Beta HCG, Quant Cancelled mIU/mL Urine Color Yellow Urine Appearance Clear Urine pH 7.0 (5.0-9.0) Ur Specific [place] <= 1.005 (1.005-1.025) Urine Protein Negative (Neg-Trace) mg/dL Urine Glucose (UA) Negative (Negative) mg/dL Urine Ketones Negative (Negative) mg/dL Urine Blood Negative (Negative) Urine Nitrite Negative (Negative) Ur Leukocyte Esterase Negative (Negative) <Gil Weber MD - Last Filed: 04/19/22 21:50> Independent Interpretation I performed an independent interpretation of an: EKG ( Norm sinus rhythm with a rate of 95. No ST elevation or depression. Normal QRS axis. No ectopy.) <Gil Weber MD - Last Filed: 04/19/22 21:50> Radiology Impression Discussion of test interpretation with radiology: I have reviewed the radiologist's reading. <Gil Weber MD - Last Filed: 04/19/22 21:50> Radiologist Impression: chest x-ray: IMPRESSION: Unremarkable chest examination. <Gil Weber MD - Last Filed: 04/19/22 21:50> Tests considered The following testing was considered but not selected: D-dimer, CT angiogram of the chest <Gil Weber MD - Last Filed: 04/19/22 21:50> Chronic Conditions Patient?s care impacted by: Other ( gallstones) <Gil Weber MD - Last Filed: 04/19/22 21:50> Discharge Plan Discharge Clinical Impression: Anxiety, Atypical chest pain <ANUJA Gonzalez - Last Filed: 04/19/22 18:37> Patient Disposition: Home, Self-Care <ANUJA Gonzalez - Last Filed: 04/19/22 18:37> Instructions: Noncardiac Chest Pain (ED), Anxiety (ED) <ANUJA Gonzalez - Last Filed: 04/19/22 18:37> Additional Instructions: Use lorazepam as prescribed, sparingly, as needed for an anxiety attack. Follow up with your primary care physician regarding possible sleep apnea. If you feel like you have persistent symptoms of acid reflux, you can use omeprazole [id number], as well as Maalox or Mylanta after meals and before bed. <ANUJA Gonzalez - Last Filed: 04/19/22 18:37> Prescriptions: New lorazepam 1 mg tablet 1 mg PO DAILY PRN (Reason: anxiety) Qty: 10 0RF Rx Instructions: Use p.r.n. persistent anxiety /panic attack No Action medroxyprogesterone [Provera] 10 mg tablet 10 mg PO DAILY 3 Days Qty: 3 0RF Rx Instructions: start Provera 1 tablet daily from day 15-24 cyclically every month, day 1 being 1st day of menses <ANUJA Gonzalez - Last Filed: 04/19/22 18:37>
[2022-04-19 18:30] LABS: MANUAL DIFF FLAG NO
[2022-04-19 18:33] VITALS: BP 146/85; PULSE 102; RESP 16; TEMP 36.6; O2SAT 95; BMI 38.1
[2022-04-19 18:38] LABS: Appearance Urine Clear; Color Urine Yellow; Glucose Urine UA Negative (Negative); Leukocyte Esterase Urine Negative (Negative); Nitrite Urine Negative (Negative); Specific Gravity - Urine <= 1.005 (1.005-1.025); Urine Blood Negative (Negative); Urine Ketones Negative (Negative); Urine Protein Negative (Neg-Trace)
[2022-04-19 18:41] LABS: INTERNATIONAL NORM RATIO 0.9 (0.9-1.1); Prothrombin Time 10.2 SEC (10.0-13.1)
[2022-04-19 18:45] LABS: Basophils Percent Auto 0.7 % (0-2); Eosinophils Percent Auto 0.5 % (0-4); Hematocrit 38.4 % (37.0-47.0); Hemoglobin 13.3 g/dl (12.0-16.0); Imm Gran Abs Auto 0.01 X10*3/uL (0.00-0.03); Imm Gran Pct Auto 0.2 % (0.0-0.4); Lymphocytes Absolute Auto 1.7 X10*3/uL (1.2-4.9); Lymphocytes Percent Auto 28.2 % (20-40); Mean Corpuscular HGB Conc 34.6 g/dl (31.0-35.0); Mean Corpuscular Hemoglobin 30.4 pg (27.0-33.0); Mean Corpuscular Volume 87.7 fL (80.0-98.0); Mean Platelet Volume 9.4 fL (9.4-12.3); Monocytes Absolute Auto 0.2 X10*3/uL (0.1-1.2); Monocytes Percent Auto 3.9 % (2-11); Neutrophils Absolute Auto 4.1 x10*3/uL (2.0-8.3); Neutrophils Percent Auto 66.5 % (45-73); Platelet Count 356 X10*3/uL (160-400); Red Blood Count 4.38 X10*6/uL (4.20-5.50); Red Cell Distribution Width 12.2 % (11.0-16.0); White Blood Count 6.1 X10*3/uL (4.8-10.8)
[2022-04-19 19:01] LABS: Alanine Aminotransferase 18 U/L (0-31); Albumin Level 4.4 g/dL (3.5-5.0); Alkaline Phosphatase 56 U/L (39-117); Anion Gap 14 (12-20); Aspartate Amino Transferase 18 U/L (5-31); Bilirubin Total 0.2 mg/dL (0.0-1.0); Blood Urea Nitrogen 15 mg/dL (9-16); Calcium 9.9 mg/dL (8.4-10.2); Carbon Dioxide 25 mmol/L (22-29); Chloride 104 mmol/L (96-108); Creatinine Clr Calc Pharmacy 92.7; Estimated Glomerular Filt Rate > 60; Glucose Random 140 mg/dL (60-115); Lipase 46 U/L (8-78); Magnesium 1.9 mg/dL (1.6-2.6); Potassium 3.9 mmol/L (3.3-5.1); Sodium 139 mmol/L (135-145); Total Protein 7.5 g/dL (6.5-8.0)
[2022-04-19 19:05] LABS: HCG Quantitative < 2 mIU/mL
[2022-04-19 19:06] LABS: Troponin-I High Sensitivity < 3.5 ng/L (<3.5-17.0)
[2022-04-19 19:25] VITALS: BP 117/76; PULSE 75; RESP 13; TEMP 36.7; O2SAT 99
--- NOTE | 2022-04-19 19:25 | PC.NURSE ---
assumed care of pt; no apparent distress, resting quietly; vs assessed
--- NOTE | 2022-04-19 20:57 | PC.NURSE ---
pt in hospital attire, call lebron paced within reach
--- NOTE | 2022-04-19 20:58 | PC.NURSE ---
pt c/o sore thrt rating pain 06/08 states chest pain has resolved when asked about n/v/d/dizziness pt states she did have these sxs earlier today but have since then resolved prioir to arrival at [facility] pt seems to be very anxious and fixated on what the monitor is reading and reports that numbers have dipped , however, vs remain stable; provider aware
[2022-04-19] MEDS: LORazepam 1 MG TABLET PO (21:01)
--- NOTE | 2022-04-19 21:03 | PC.NURSE ---
ativan 1mg PO administered per MAR
[2022-04-19 21:17] VITALS: BP 113/72; PULSE 72; RESP 14; O2SAT 100
--- NOTE | 2022-04-19 21:53 | PC.NURSE ---
Discharge instructions given and explained; patient ambulates safely/independently; no apparent distress
[2022-04-19 21:55] VITALS: PULSE 89
== END 2022-04-19 21:53 | disposition home or self-care (01) ==
PROVIDERS: Physician Assistant Medical; Emergency Provider Emergency Medicine
DX: R07.89 Other chest pain (principal); M79.10 Myalgia, unspecified site; Z79.899 Other long term (current) drug therapy
CPT/HCPCS: 36415; 71046; 80053; 81003; 83690; 83735; 84484; 84702; 85025; 85610; 93005; 99283; 99284; 99285